=== PATIENT | male | born 1995 | race African-American/Black ===

== ENCOUNTER 2019-06-12 19:00 | Inpatient (IN) | payer MEDICAID ==
[2019-06-12] MEDS: IBUPROFEN 600 MG TAB PO (20:41)
[2019-06-12] MEDS: morphine 4 MG/ML VIAL IV (21:24)
[2019-06-12 21:30] LABS: ADD MAN DIFF? NO
[2019-06-12] MEDS ORDERED: ONDANSETRON 4 MG TAB PO (21:30)
[2019-06-12] MEDS ORDERED: BISACODYL (EC) 5 MG TAB PO (21:30)
[2019-06-12] MEDS ORDERED: ACETAMINOPHEN 325 MG TAB PO ×2 (21:30)
[2019-06-12] MEDS ORDERED: ONDANSETRON 4 MG INJ IV (21:30)
[2019-06-12] MEDS ORDERED: NACL 0.9% 3 ML SYG IV (21:30)
[2019-06-12 21:31] LABS: WHITE BLOOD COUNT 7.1 10^3/ul (4.8-10.8)
[2019-06-12 21:31] LABS: BASOPHILS % 0.4 % (0.0-2.0); EOSINOPHILS # 0.1 10^3/ul (0.0-0.5); EOSINOPHILS % 1.6 % (0.0-7.0); HEMATOCRIT 46.1 % (42.0-52.0); HEMOGLOBIN 15.8 g/dl (14.0-18.0); LYMPHOCYTES # 1.7 10^3/ul (0.8-2.9); LYMPHOCYTES % 23.6 % (15.0-51.0); MEAN CORPUSCULAR HEMOGLOBIN 29.4 pg (29.0-33.0); MEAN CORPUSCULAR HGB CONC 34.3 g/dl (32.0-37.0); MEAN CORPUSCULAR VOLUME 85.8 fl (82.0-101.0); MEAN PLATELET VOLUME 10.7 fl (7.4-10.4); MONOCYTE # 0.5 10^3/ul (0.3-0.9); MONOCYTES % 7.1 % (0.0-11.0); NEUTROPHIL # 4.8 10^3/ul (1.6-7.5); PLATELET COUNT 162 10^3/UL (140-415); RED BLOOD COUNT 5.37 10^6/ul (4.70-6.10); RED CELL DISTRIBUTION WIDTH 12.1 % (11.5-14.5)
[2019-06-12 21:51] LABS: INR 1.09; PROTIME 14.2 Sec (11.9-14.9); PT RATIO 1.1
[2019-06-12 21:52] LABS: PARTIAL THROMBOPLASTIN TIME 33.7 Sec (23.0-35.0)
[2019-06-12 22:05] LABS: ALANINE AMINOTRANSFERASE 24 IU/L (13-69); ALBUMIN 4.7 g/dl (3.3-4.9); ALBUMIN/GLOBULIN RATIO 1.17; ALKALINE PHOSPHATASE 72 IU/L (42-121); ANION GAP 8 (5-13); ASPARTATE AMINO TRANSFERASE 28 IU/L (15-46); BILIRUBIN,INDIRECT 0.8 mg/dl (0-1.1); BILIRUBIN,TOTAL 0.8 mg/dl (0.2-1.3); BLOOD UREA NITROGEN 17 mg/dl (7-20); CALCIUM 10.3 mg/dl (8.4-10.2); CARBON DIOXIDE 33 mmol/L (21-31); CHLORIDE 99 mmol/L (97-110); CREATININE 1.18 mg/dl (0.61-1.24); Estimated GFR > 60 mL/min (>60); GLUCOSE 85 mg/dl (70-220); POTASSIUM 4.1 mmol/L (3.5-5.1); SODIUM 140 mmol/L (135-144); TOTAL PROTEIN 8.7 g/dl (6.1-8.1)
[2019-06-13] MEDS: ENOXAPARIN 60 MG/0.6 ML SYG SC ×3 (00:48→20:33)
[2019-06-13] MEDS: HYDROCODONE/APAP (5/325) TAB PO ×2 (01:19→20:39)
[2019-06-13] MEDS: morphine 2 MG INJ IV ×3 (04:31→14:11)
[2019-06-13 05:11] LABS: ADD MAN DIFF? NO
[2019-06-13 05:13] LABS: WHITE BLOOD COUNT 7.8 10^3/ul (4.8-10.8)
[2019-06-13 05:13] LABS: BASOPHILS % 0.3 % (0.0-2.0); EOSINOPHILS # 0.2 10^3/ul (0.0-0.5); EOSINOPHILS % 2.2 % (0.0-7.0); HEMATOCRIT 42.4 % (42.0-52.0); HEMOGLOBIN 14.5 g/dl (14.0-18.0); LYMPHOCYTES # 3.4 10^3/ul (0.8-2.9); LYMPHOCYTES % 43.9 % (15.0-51.0); MEAN CORPUSCULAR HEMOGLOBIN 29.5 pg (29.0-33.0); MEAN CORPUSCULAR HGB CONC 34.2 g/dl (32.0-37.0); MEAN CORPUSCULAR VOLUME 86.4 fl (82.0-101.0); MEAN PLATELET VOLUME 11.1 fl (7.4-10.4); MONOCYTE # 0.6 10^3/ul (0.3-0.9); MONOCYTES % 7.3 % (0.0-11.0); NEUTROPHIL # 3.6 10^3/ul (1.6-7.5); PLATELET COUNT 154 10^3/UL (140-415); RED BLOOD COUNT 4.91 10^6/ul (4.70-6.10); RED CELL DISTRIBUTION WIDTH 12.3 % (11.5-14.5)
[2019-06-13 05:35] LABS: ALANINE AMINOTRANSFERASE 23 IU/L (13-69); ALBUMIN 4.1 g/dl (3.3-4.9); ALBUMIN/GLOBULIN RATIO 1.24; ALKALINE PHOSPHATASE 76 IU/L (42-121); ANION GAP 10 (5-13); ASPARTATE AMINO TRANSFERASE 33 IU/L (15-46); BILIRUBIN,INDIRECT 0.6 mg/dl (0-1.1); BILIRUBIN,TOTAL 0.6 mg/dl (0.2-1.3); BLOOD UREA NITROGEN 19 mg/dl (7-20); CALCIUM 9.3 mg/dl (8.4-10.2); CARBON DIOXIDE 29 mmol/L (21-31); CHLORIDE 102 mmol/L (97-110); Estimated GFR > 60 mL/min (>60); GLUCOSE 102 mg/dl (70-220); POTASSIUM 3.6 mmol/L (3.5-5.1); SODIUM 141 mmol/L (135-144); TOTAL PROTEIN 7.4 g/dl (6.1-8.1)
[2019-06-13 06:33] LABS: ADD UMIC NO; UR ASCORBIC ACID NEGATIVE (NEGATIVE); UR BILIRUBIN (Dip) NEGATIVE (NEGATIVE); UR BLOOD (Dip) NEGATIVE (NEGATIVE); UR CLARITY CLEAR (CLEAR); UR COLOR YELLOW (YELLOW); UR GLUCOSE (Dip) NEGATIVE (NEGATIVE); UR KETONES (Dip) NEGATIVE (NEGATIVE); UR LEUKOCYTE ESTERASE (Dip) NEGATIVE Leu/ul (NEGATIVE); UR NITRITE (Dip) NEGATIVE (NEGATIVE); UR SPECIFIC GRAVITY (Dip) 1.027 (1.003-1.030); UR TOTAL PROTEIN (Dip) NEGATIVE (NEGATIVE); UR UROBILINOGEN (Dip) 1+ mg/dL (NEGATIVE)
[2019-06-13] MEDS: DOCUSATE SODIUM 100 MG CAP PO (23:06)
[2019-06-14] MEDS: morphine 2 MG INJ IV ×5 (01:49→21:01)
[2019-06-14 05:41] LABS: WHITE BLOOD COUNT 5.6 10^3/ul (4.8-10.8)
[2019-06-14 05:41] LABS: ADD MAN DIFF? NO; BASOPHILS % 0.5 % (0.0-2.0); EOSINOPHILS # 0.2 10^3/ul (0.0-0.5); EOSINOPHILS % 2.7 % (0.0-7.0); HEMATOCRIT 44.1 % (42.0-52.0); HEMOGLOBIN 15.3 g/dl (14.0-18.0); LYMPHOCYTES # 2.8 10^3/ul (0.8-2.9); MEAN CORPUSCULAR HEMOGLOBIN 29.6 pg (29.0-33.0); MEAN CORPUSCULAR HGB CONC 34.7 g/dl (32.0-37.0); MEAN CORPUSCULAR VOLUME 85.3 fl (82.0-101.0); MEAN PLATELET VOLUME 10.9 fl (7.4-10.4); MONOCYTE # 0.5 10^3/ul (0.3-0.9); MONOCYTES % 8.5 % (0.0-11.0); NEUTROPHIL # 2.2 10^3/ul (1.6-7.5); NEUTROPHILS % 38.9 % (39.0-77.0); PLATELET COUNT 164 10^3/UL (140-415); RED BLOOD COUNT 5.17 10^6/ul (4.70-6.10); RED CELL DISTRIBUTION WIDTH 12.2 % (11.5-14.5)
[2019-06-14 06:18] LABS: PHOSPHORUS 4.6 mg/dl (2.5-4.9)
[2019-06-14 06:44] LABS: ANION GAP 9 (5-13); BLOOD UREA NITROGEN 14 mg/dl (7-20); CALCIUM 9.6 mg/dl (8.4-10.2); CARBON DIOXIDE 28 mmol/L (21-31); CHLORIDE 102 mmol/L (97-110); CREATININE 0.98 mg/dl (0.61-1.24); Estimated GFR > 60 mL/min (>60); GLUCOSE 113 mg/dl (70-220); POTASSIUM 3.8 mmol/L (3.5-5.1); SODIUM 139 mmol/L (135-144)
[2019-06-14] MEDS: ENOXAPARIN 60 MG/0.6 ML SYG SC (08:15)
[2019-06-14] MEDS: RIVAROXABAN 15 MG TABLET PO (17:09)
[2019-06-15] MEDS: morphine 2 MG INJ IV ×2 (01:23→05:34)
[2019-06-15] MEDS: SOD CHLORIDE 0.9% 100 ML (03:40)
[2019-06-15] MEDS: IOHEXOL 100 ML (03:41)
[2019-06-15] MEDS: RIVAROXABAN 15 MG TABLET PO (08:18)
[2019-06-15] MEDS: HYDROCODONE/APAP (5/325) TAB PO (10:26)
[2019-06-15 14:18] LABS: PROTEIN C 131 % normal (70-180)
[2019-06-15 19:50] LABS: ANTI-THROMBIN III 15 mg/dL (19-30)
== END 2019-06-15 11:05 | disposition home or self-care (01) | DRG 299 ==
LOC: FTE 19:00 → MS1 21:21
DX: I82.432 Acute embolism and thrombosis of left popliteal vein (principal); I26.99 Other pulmonary embolism without acute cor pulmonale; D68.59 Other primary thrombophilia; J43.9 Emphysema, unspecified; F12.90 Cannabis use, unspecified, uncomplicated; I82.442 Acute embolism and thrombosis of left tibial vein
CPT/HCPCS: 71275; 80048; 80053; 81003; 83036; 83735; 83890; 84100; 84443; 85025; 85300; 85302; 85305; 85610; 85613; 85730; 93971